=== PATIENT | male | born 1980 | race Caucasian/White ===

== ENCOUNTER 2020-05-01 14:51 | Emergency (ER) | payer OTHER ==
[2020-05-01] MEDS ORDERED: ONDANSETRON HCL INJ/PF 4 MG/2 ML SDV IV ONE (15:50)
[2020-05-01] MEDS ORDERED: MORPHINE SULFATE 10 MG/ML INJ IV ONE (15:51)
--- NOTE | 2020-05-01 15:55 | ER Document Report ---
ED Medical Screen (RME) - General Chief Complaint: Wrist Pain Stated Complaint: WRIST PAIN Time Seen by Provider: 05/01/20 15:47 Notes: Patient 39-year-old male who presents emergency department with a chief complaint of right wrist pain. Patient reports prior to arrival he was skateboarding when he fell injuring his right wrist. Patient is unsure of the specifics of how he fell but does have an obvious deformity and pain to his right wrist. Physical Exam - Vital signs Vitals: Temp Pulse Resp BP Pulse Ox 98.0 F 64 16 123/82 100 05/01/20 15:09 05/01/20 15:05/01/20 15:05/01/20 15:05/01/20 15:09 Course - Re-evaluation Re-evalutation: 05/01/20 15:52 Patient has obvious deformity to the right wrist, + 2 radial pulse, <2 sec cap refill. I have greeted and performed a rapid initial assessment of this patient. A comprehensive ED assessment and evaluation of the patient, analysis of test results and completion of the medical decision making process will be conducted by additional ED providers. - Vital Signs Vital signs: Temp Pulse Resp BP Pulse Ox 98.0 F 64 16 123/82 100 05/01/20 15:09 05/01/20 15:05/01/20 15:05/01/20 15:05/01/20 15:09
--- NOTE | 2020-05-01 16:32 | RADIOLOGY REPORT (SQ) ---
EXAM DESCRIPTION: WRIST RIGHT 3 VIEWS IMAGES COMPLETED DATE/TIME: 05/01/2020 4:21 pm REASON FOR STUDY: fall off skateboard, + deformity COMPARISON: None. NUMBER OF VIEWS: Three views. TECHNIQUE: AP, lateral, and oblique radiographic images acquired of the right wrist. LIMITATIONS: None. FINDINGS: MINERALIZATION: Normal. BONES: Comminuted intra-articular fracture of the distal radius with mild impaction. Nondisplaced fr acture of the ulnar styloid. SOFT TISSUES: No foreign body. OTHER: No other significant finding. IMPRESSION: Fractures of the distal radius and ulna. TECHNICAL DOCUMENTATION: JOB ID: [id number] 2010 [email or web address]- All Rights Reserved Reading location - IP/workstation name: [email or web address]
[2020-05-01] MEDS ORDERED: ONDANSETRON 4 MG TAB.RAPDIS PO ONE (17:38)
[2020-05-01] MEDS ORDERED: MORPHINE SULFATE 10 MG/ML INJ IM ONE (17:38)
--- NOTE | 2020-05-01 18:09 | ER Document Report ---
Entered by DAMARI GIBBONS SCRIBE 05/01/20 [id number] Acting as scribe for:BLAZE LOCKE MD ED Hand/Wrist Injury - General Chief Complaint: Wrist Pain Stated Complaint: WRIST PAIN Time Seen by Provider: 05/01/20 15:47 Mode of Arrival: Ambulatory Information source: Patient Notes: This 39-year-old male patient presents to the emergency department today with complaints of pain and swelling with associated deformity of the right distal radius and ulna. Patient was skateboarding with his daughter when he tumbled over. Patient does not remember the exact mechanism of injury. Distal sensation and pulses intact. TRAVEL OUTSIDE OF THE [place] IN LAST 30 DAYS: No - Related Data Allergies/Adverse Reactions: Sulfa (Sulfonamide Antibiotics) Allergy (Verified 05/01/20 18:15) Past Medical History - General Information source: Patient - Social History Smoking Status: Never Smoker Cigarette use (# per day): No Frequency of alcohol use: None Drug Abuse: None Occupation: IT Lives with: Family Family History: Reviewed & Not Pertinent - Medical History Medical History: Negative Surgical Hx: Negative Review of Systems - Review of Systems Constitutional: No symptoms reported EENT: No symptoms reported Cardiovascular: No symptoms reported Respiratory: No symptoms reported Gastrointestinal: No symptoms reported Genitourinary: No symptoms reported Male Genitourinary: No symptoms reported Musculoskeletal: See HPI, Joint pain - right wrist Skin: No symptoms reported Hematologic/Lymphatic: No symptoms reported Neurological/Psychological: No symptoms reported -: Yes All other systems reviewed and negative Physical Exam - Vital signs Vitals: Temp Pulse Resp BP Pulse Ox 98.0 F 64 16 123/82 100 05/01/20 15:09 05/01/20 15:09 05/01/20 15:09 05/01/20 15:09 05/01/20 15:09 - Notes Notes: Physical Exam: General: Alert, appears uncomfortable. HEENT: Normocephalic. Atraumatic. PERRLA. Extraocular movements intact. Oropharynx clear. Neck: Supple. Respiratory: No respiratory distress. Abdominal: Normal Inspection. No distension. Extremities: Swelling and deformity to the right distal radius and ulna. Distal sensation and pulses intact. Neurological: Normal cognition. AAOx4. Normal speech. Psychological: Normal affect. Normal Mood. Skin: Warm. Dry. Normal color. Course - Re-evaluation Re-evalutation: 05/01/20 18:39 Sugar tong splint was placed on the right forearm and wrist by the PCT. It fits well and provides comfort. Capillary refill remains normal and the fingertips are actually more warm now than they were initially. Sensation is intact to the fingertips. The patient was also given a sling to support the weight of the splint when he is up and about. - Vital Signs Vital signs: Temp Pulse Resp BP Pulse Ox 98.0 F 64 16 123/82 100 05/01/20 15:09 05/01/20 15:09 05/01/20 15:09 05/01/20 15:05/01/20 15:09 - Diagnostic Test Radiology reviewed: Image reviewed, Reports reviewed - Right wrist comminuted intra-articular fracture of the distal radius with mild impaction and nondisplaced fracture of the ulnar styloid. Discharge - Discharge Clinical Impression: Distal radius fracture, right Qualifiers: Encounter type: initial encounter Fracture type: closed Fracture morphology: other intra-articular Qualified Code(s): S52.571A - Other intraarticular fracture of lower end of right radius, initial encounter for closed fracture Condition: Stable Disposition: HOME, SELF-CARE Additional Instructions: Fractured Radius: The bone called the radius is fractured. This type of fracture is typically caused by falling onto the outstretched hand. Keep the splint clean and dry. Elevate your hand above your heart all the time. Use ice packs to reduce the swelling and pain off and on for the next few days. Take the pain medication as needed. Call [facility] for surgery Monday to schedule an appointment on Monday or Monday. Return to the emergency room for recheck if your fingers begin feeling numb or tingly. RETURN TO THE EMERGENCY ROOM IF ANY NEW OR WORSENING SYMPTOMS. Prescriptions: Oxycodone HCl/Acetaminophen [Percocet 5-325 mg Tablet] 1 tab PO ASDIR PRN #20 tablet PRN Reason: I personally performed the services described in the documentation, reviewed and edited the documentation which was dictated to the scribe in my presence, and it accurately records my words and actions.
[2020-05-01 18:53] VITALS: BP 132/86
== END 2020-05-01 18:45 | disposition home or self-care (01) ==
LOC: ER 14:51
DX: S52.571A Other intraarticular fracture of lower end of right radius, initial encounter for closed fracture (principal); S52.614A Nondisplaced fracture of right ulna styloid process, initial encounter for closed fracture; V00.131A Fall from skateboard, initial encounter; Y93.51 Activity, roller skating (inline) and skateboarding; Y92.009 Unspecified place in unspecified non-institutional (private) residence as the place of occurrence of the external cause; Z88.2 Allergy status to sulfonamides
CPT/HCPCS: 99284; 96374; 73110; 29125; S0119; J2270

== ENCOUNTER 2020-05-05 15:40 | Day surgery (SDC) | payer OTHER ==
[~2020-05-05 15:40] MED LIST: CEFAZOLIN 2 GM/D5W RTU 2 GM/50 ML RTUPB IV ONE
[2020-05-05] MEDS ORDERED: MIDAZOLAM 2 MG/2 ML INJ ONE ×2 (16:34→16:35)
[2020-05-05] MEDS ORDERED: ONDANSETRON HCL INJ/PF 4 MG/2 ML SDV ONE ×2 (16:35→20:29)
[2020-05-05] MEDS ORDERED: DEXAMETHASONE SOD PHOSPHATE INJ 4 MG/1 ML VIAL ONE (16:35)
[2020-05-05] MEDS ORDERED: ROPIVACAINE HCL 0.5% INJ/PF (5 MG/1 ML) 30 ML SDV ONE ×2 (16:35→19:29)
[2020-05-05] MEDS ORDERED: PROPOFOL INJ 200 MG/20 ML VIAL IV ONE (16:35)
[2020-05-05] MEDS ORDERED: FENTANYL CITRATE INJ/PF 100 MCG/2 ML AMPUL ONE ×3 (16:35→19:05)
[2020-05-05 16:42] LABS: HEMOGLOBIN 14.5 g/dL (13.5-17.0); MEAN CORPUSCULAR HEMOGLOBIN 30.4 pg (27.0-33.4); MEAN CORPUSCULAR HGB CONC 36.2 g/dL (32.0-36.0); MEAN CORPUSCULAR VOLUME 84 fl (80-97); PLATELET COUNT 277 10^3/uL (150-450); RED BLOOD COUNT 4.76 10^6/uL (4.35-5.55); RED CELL DISTRIBUTION WIDTH 13.2 % (11.5-14.0)
[2020-05-05] MEDS ORDERED: BUPIVACAINE HCL 0.5 % INJ/PF 30 ML SDV ONE ×2 (17:11→19:43)
[2020-05-05] MEDS ORDERED: FENTANYL CITRATE INJ/PF 100 MCG/2 ML AMPUL IV PRN ×3 (17:40)
[2020-05-05] MEDS ORDERED: DIPHENHYDRAMINE HCL 50 MG/ML VIAL IV PRN (17:40)
[2020-05-05] MEDS ORDERED: ONDANSETRON HCL INJ/PF 4 MG/2 ML SDV IV PRN (17:40)
[2020-05-05] MEDS ORDERED: MEPERIDINE HCL/PF INJ 25 MG/1 ML DISP.SYRIN IV PRN (17:40)
[2020-05-05] MEDS ORDERED: MORPHINE SULFATE 10 MG/ML INJ IV PRN (17:40)
[2020-05-05] MEDS ORDERED: PROMETHAZINE HCL INJ 25 MG/1 ML VIAL IV PRN ×2 (17:40)
--- NOTE | 2020-05-05 18:56 | Operative Report ---
Operative Report DATE OF SURGERY: 05/05/20 PREOPERATIVE DIAGNOSIS: >3 part intra-articular right distal radius fracture POSTOPERATIVE DIAGNOSIS: Same OPERATION: Open reduction internal fixation >3 part intra-articular distal radius fracture SURGEON: SILVIANO MAYERS ANESTHESIA: GA COMPLICATIONS: None ESTIMATED BLOOD LOSS: Minimal PROCEDURE: Indication for above procedure: 39-year-old male who sustained a fall onto his right wrist while skateboarding on 05/01/2020. Patient was seen at the emergency room x-rays demonstrated comminuted distal radius fracture. Given the amount of comminution intra- articular involvement and dorsal angular deformity decision was made to proceed with operative intervention. Risk and benefits were explained patient verbalized understanding consented for surgical procedure. Procedure In Detail: Patient was seen and evaluated in the preoperative holding area. The RIGHT upper extremity was initialized and marked. Patient received 2g of Ancef IV for bacterial prophylaxis. Patient was taken back to the operative room where transferred to the operative table and placed under general anesthesia. Once t hey were adequately anesthetized and a nonsterile tourniquet was placed on his upper extremity. A surgical team debriefing was performed ensuring all instrumentation was available, the surgical procedure was discussed with possible concerns reviewed. The upper extremity was prepped with chlorhexidine and alcohol and draped in a sterile fashion. A timeout was done identifying correct patient, procedure and extremity everyone in attendance agree with this and verbalized no concerns.The extremity was exsanguinated the tourniquet was inflated to 250 mmHg. A longitudinal skin incision was made via a volar approach of Thong along the FCR tendon sheath. The FCR tendon sheath was opened and the FCR retracted ulnarly, the palmar cutaneous branch of the median nerve was identified and protected throughout the entirety of the case. The radial artery was identified and retracted radially. Blunt dissection was performed to the FPL which was carefully sweeped ulnarly. This brought me to the pronator quadratus which was elevated off of the distal radius via sharp dissection with a 15 blade to allow later repair. The fracture was then identified and a reduction maneuver was performed utilizing a [place] elevator. Acceptable reduction was then obtained, the radial styloid was then reduced under direct visualization and provisionally held with a K wire. A Acumed 4- hole wide volar distal radius plate was placed into position and fixated with a K wire distally x2. AP and lateral radiographs were then obtained demonstrating appropriate placement of the plate and acceptable reduction of the fracture. Using a reduction tenaculum I was able to bring the plate down to bone distally. After drilling distally a cortical screw was used bringing the plate further down to bone, avoiding any liftoff of the plate from the volar cortex that could cause flexor tendon irritation post-operativley. Drilling the near cortex and to but not thru the far cortex a locking screw was then placed in the remaining holes. The previous cortex screw was removed and replaced with a locking screw. Two additional screws were placed into the styloid giving further stability to the radial styloid piece. AP and lateral radius were then done confirming appropriate placement of plate with no evidence of penetration intra-articular or within the DRUJ. I then turned my attention to the proximal screws. I drilled bicortically bringing the plate down to bone with a cortex screw. The remaining 2 holes proximally were drilled bicortically placing the appropriate size cortex in the proximal most hole and a locking screw in the distal shaft hole. Provisional K wire of the radial styloid was removed and wrist was placed through range of motion under live fluoroscopy, AP and lateral radiographs were done confirming appropriate placement of the plate and reduction of the fracture there was roman catholic of radial height, radial inclination and volar tilt. No evidence of dorsal screw prominence or intra-articular penetration of the DRUJ or radiocarpal joint. There is no instability of the fracture after motion. The wound was copiously irrigated with normal saline. There was no evidence of DRUJ instability on examination, Negative Caldwell's test, No crepitus with range of motion at the radiocarpal joint or DRUJ. The pronator quadratus was closed with interrupted 3-0 Monocryl suture. Tourniquet was deflated and peripheral bleeding was controlled with cautery. Subcutaneous tissues were closed with interrupted 4-0 Monocryl suture. The skin was closed with a running subcuticular 4-0 Monocryl suture which was reinforced with Dermabond and Steri- Strips. 20 mL of 0.5% Marcaine were injected for postoperative pain control. Was dressed with sterile 4 x 4's and patient was placed in a well-padded volar splint. Sponge counts, instrument counts and needle counts were correct. There was no intraoperative complications patient tolerated procedure well stable to PACU. Postoperative plan: Patient will be switched to a removal brace at first postoperative followup visit and begin range of motion. Patient is encouraged to start vitamin C 500 mg daily for 51 days. Will obtain radiographs at followup of the wrist.
--- NOTE | 2020-05-05 18:57 | Discharge Summary ---
Discharge Summary (SDC) - Discharge Final Diagnosis: Right distal radius fx Date of Surgery: 05/05/20 Discharge Date: 05/05/20 Condition: Good Treatment or Instructions: Schedule Follow Up w/ Dr. Nhan Parekh @ [facility] for [facility] to be seen in 10-14 days or as scheduled [place]: [place]: [place]: Ice and elevate Keep splint clean/dry/intact, do not remove. If your fingers become numb please unwrap the [place] wrap but leave the splint in place, if the sensation does not return within 30 minutes please return to the emergency department. May begin finger range of motion attempting to make full fist. Please use ibuprofen (Motrin or Advil) 600-800 mg every 8 hours as needed for pain or fever DO NOT TAKE w/ TORADOL may use once TORADOL complete. You may also use acetaminophen (Tylenol) 1000 mg every 4-6 hours as needed for pain or fever. Please be aware that many medications contain acetaminophen, do not exceed a total of 1000 mg of acetaminophen every 6 hours. If ibuprofen and acetaminophen are not sufficient for your pain you may take the Percocet/Ames. Please be aware that the Percocet/Ames does contain Tylenol. Stool softener of choice when on pain medication. USE OF [id number] IBUPROFEN: Ibuprofen (Advil, Nuprin, Medipren, Motrin IB) is a medication for fever and pain control. In addition, it has anti- inflammatory effects which may be beneficial, especially in the treatment of injuries. It's best to take ibuprofen with food. Persons with ulcer disease or allergy to aspirin should notify their physician of this before taking ibuprofen. Ibuprofen can be given every four to six hours, for a total of four doses daily. Age Pain or fever dose Antiinflammatory dose 6-8 yr 200 mg (1 tab) 200 mg (1 tab) 9-11 yr 200 mg (1 tab) 200-400 mg (1-2 tab) 11-14 yr 200-400 mg (1-2 tab) 400 mg (2 tab) 15-adult 400 mg (2 tab) 600 mg (3 tab) ORAL NARCOTIC MEDICATION: You have been given a prescription for pain control. This medication is a narcotic. It's best taken with food, as nausea can result if taken on an empty stomach. Don't operate machinery or drive within six hours of taking this medication. Do not combine this medicine with alcohol, or with any medication which can cause sedation (such as cold tablets or sleeping pills) unless you get permission from the physician. Narcotics tend to cause constipation. If possible, drink plenty of fluids and eat a diet high in fiber and fruits. Please be aware that prescription narcotics also have the potential for abuse. People become addicted to these medications because of the general sense of wellbeing that they induce. This feeling along with a significant reduction in tension, anxiety, and aggression provides a stimulating seductive quality to these drugs. Once your pain is under control, we encourage you to discard your unused narcotics. Prescriptions: Ketorolac Tromethamine [Toradol 10 mg Tablet] 10 mg PO Q8HP PRN #12 tablet PRN Reason: Oxycodone HCl/Acetaminophen [Percocet 5-325 mg Tablet] 1 tab PO Q6 PRN #25 tablet PRN Reason: Discharge Diet: As Tolerated Respiratory Treatments at Home: Deep Breathing/Coughing, Incentive Spirometer Discharge Activity: No Lifting Over 10 Pounds, No Lifting/Push/Pulling Report the Following to Your Physician Immediately: Fever over 101 Degrees, Unusual Bleeding, Redness, Swelling, Warmth, Increased Soreness
[2020-05-05] MEDS ORDERED: MORPHINE SULFATE 10 MG/ML INJ ONE (19:14)
[2020-05-05] MEDS ORDERED: KETOROLAC TROMETHAMINE INJ/PF 30 MG/1 ML SDV ONE (19:38)
[2020-05-05] MEDS ORDERED: OXYCODONE-ACETAMINOPHEN 5-325 MG TABLET ONE (19:38)
[2020-05-05] MEDS ORDERED: KETOROLAC TROMETHAMINE INJ/PF 30 MG/1 ML SDV IV ONE (20:00)
[2020-05-05] MEDS ORDERED: OXYCODONE-ACETAMINOPHEN 5-325 MG TABLET PO ONE (20:00)
[2020-05-05 20:31] VITALS: BP 155/101
[2020-05-05] MEDS ORDERED: ONDANSETRON 4 MG TAB.RAPDIS ONE (20:31)
--- NOTE | 2020-05-06 10:48 | RADIOLOGY REPORT (SQ) ---
EXAM DESCRIPTION: WRIST RIGHT 3 VIEWS; NO CHG FLUORO IMAGES COMPLETED DATE/TIME: 05/05/2020 6:42 pm REASON FOR STUDY: ORIF RT WRIST S52.571A OTH INTARTIC FRACTURE OF LOWER END OF RIGHT RADIUS, COMPARISON: 05/01/2020. FLUOROSCOPY TIME: 0.8 minutes. 5 images saved to PACS. TECHNIQUE: Intra-operative images acquired during surgical procedure to evaluate progress. NUMBER OF IMAGES: 5 images. LIMITATIONS: None. FINDINGS: Images acquired during surgical fixation. IMPRESSION: IMAGE(S) OBTAINED DURING PROCEDURE. COMMENT: Quality ID [id number]: Final reports for procedures using fluoroscopy that document radiation exp osure indices, or exposure time and number of fluorographic images (if radiation exposure indices are not available) Please consult full operative report of the attending physician for description of the procedure. TECHNICAL DOCUMENTATION: JOB ID: [id number] 2010 [email or web address]- All Rights Reserved Reading location - IP/workstation name: [email or web address]
--- NOTE | 2020-05-06 10:48 | RADIOLOGY REPORT (SQ) ---
EXAM DESCRIPTION: WRIST RIGHT 3 VIEWS; NO CHG FLUORO IMAGES COMPLETED DATE/TIME: 05/05/2020 6:42 pm REASON FOR STUDY: ORIF RT WRIST S52.571A OTH INTARTIC FRACTURE OF LOWER END OF RIGHT RADIUS, COMPARISON: 05/01/2020. FLUOROSCOPY TIME: 0.8 minutes. 5 images saved to PACS. TECHNIQUE: Intra-operative images acquired during surgical procedure to evaluate progress. NUMBER OF IMAGES: 5 images. LIMITATIONS: None. FINDINGS: Images acquired during surgical fixation. IMPRESSION: IMAGE(S) OBTAINED DURING PROCEDURE. COMMENT: Quality ID [id number]: Final reports for procedures using fluoroscopy that document radiation exp osure indices, or exposure time and number of fluorographic images (if radiation exposure indices are not available) Please consult full operative report of the attending physician for description of the procedure. TECHNICAL DOCUMENTATION: JOB ID: [id number] 2010 [employer]- All Rights Reserved Reading location - IP/workstation name: [email or web address]
== END 2020-05-05 20:40 | disposition home or self-care (01) ==
LOC: OROUT 15:40
PROVIDERS: ATTEND Orthopaedic Surgery
DX: S52.571A Other intraarticular fracture of lower end of right radius, initial encounter for closed fracture (principal); S49.91XA Unspecified injury of right shoulder and upper arm, initial encounter; V00.131A Fall from skateboard, initial encounter; I10 Essential (primary) hypertension
CPT/HCPCS: 36415; 85027; 73110; 01830; 25609; C1713 ×9; C1769; J2795; J2250; J3490; J1100; S0119; J3010; J1885; J2270; J2405; J2704; J0690